=== PATIENT | male | born 2000 | race African-American/Black ===

== ENCOUNTER 2021-05-28 00:25 | Emergency (ER) | payer SELFPAY ==
[~2021-05-28] VITALS: Ht 182.9 cm; Wt 77.1 kg
[2021-05-28 00:29] VITALS: BP 138/79
--- NOTE | 2021-05-28 00:38 | NUR ---
PATIENT BIB [employer]. PATIENT EXAMINED BY DR. LE. PATIENT MEDICALLY CLEARED AND RELEASED IN CUSTODY IN STABLE CONDITION. ORIGINAL PRE-BOOK FORM GIVEN TO OFFICER BAILEE.
== END 2021-05-28 00:38 ==
LOC: MED 00:25
DX: Z02.89 Encounter for other administrative examinations (principal)
CPT/HCPCS: 99283